=== PATIENT | female | born 1950 | race Asian ===

== ENCOUNTER 2017-03-25 09:25 | Emergency (ER) | payer OTHER ==
[~2017-03-25] VITALS: Ht 160 cm; Wt 61.2 kg
[2017-03-25 09:25] VITALS: BP_SYST 160
[2017-03-25 10:35] VITALS: BP_SYST 160
== END 2017-03-25 10:35 | disposition home or self-care (01) ==
LOC: SED 09:25
DX: H10.9 Unspecified conjunctivitis (principal)
CPT/HCPCS: 99283